=== PATIENT | female | born 1995 | race Caucasian/White ===

== ENCOUNTER 2021-08-06 20:14 | Outpatient (NON) | payer OTHER, SELFPAY | END 2021-08-06 20:15 | disposition home or self-care (01) | LOC: ANHLAB 20:18 | PROVIDERS: Visit Provider Surgery Plastic and Reconstructive Surgery | DX: B99.9 Unspecified infectious disease (principal) | CPT/HCPCS: 87070; 87075; 87205 ==

== ENCOUNTER 2021-11-09 11:52 | Day surgery (SDC) | payer OTHER, SELFPAY ==
[2021-10-24 14:17] VITALS: BMI 28.9
--- NOTE | 2021-11-07 07:56 | SUR.PREOP ---
PRE-OPERATIVE [address] [address] 1. Report to the Surgery Center Waiting Room, the entrance is the first door on the right after passing through the automatic sliding doors, at time 12:00__on date_11/09/2021___. OR Time:13:30____ . When you arrive, you and your visitor will be screened for Covid prior to entry. A mask is required within the surgery center. 2. Patients may have clear liquids (water, carbonated beverages, clear teas, apple juice) until 3 hours prior to surgery with a maximum of 20 ounces. ? No food from midnight until time of surgery. ? Infants may have breast milk until 4 hours before surgery, infant formula 6 hours prior to surgery. ? Children will be allowed to drink immediately following surgery. If applicable, please bring a bottle or sippy cup to assist with drinking. Juice, water, soda, and popsicles are readily available. For infants on formula, please bring formula the day of surgery. Pacifiers are allowed. 3. Take the following medications with a SIP of water the morning of surgery: 1. n/a 2. 3. Medications to discontinue per physician order: 1. n/a date to discontinue: 4. No make-up, nail urdu, hairspray, perfume, deodorant, or body powder the day of surgery. No jewelry (including any body piercings) or valuables the day of surgery. Please take a shower or bath the night before, or the morning of, surgery with an antibacterial soap. Wear comfortable, loose fitting clothing. Children are encouraged to wear pajamas. ? Jewelry must be removed prior to entering the operating room. Rings and piercings that are not removed will be cut off. The center will not accept responsibility for valuables. Please leave all valuables, including medications, at home the day of surgery. 5. When going home after surgery, a licensed telephone directory distributor driver must drive you home. NO public transportation without another adult. We recommend someone to stay with you, no alcoholic beverages, driving or important decision making for 24 hours after surgery. For pediatric surgeries, we recommend two adults to accompany a child home. (Only one will be allowed into the building with the patient) 6. 1 visitor (over age of 18) will be allowed. The visitor will drop patient off and remain in car until patient is prepared for surgery. Visitor will be called to join patient. Exceptions: Adult of a pediatric patient, patients with intellectual and/or developmental disability or cognitive impairments can accompany patient through-out visit. Visitors will need to be screened prior to coming into the center. Screening will include Covid symptom question checking. Visitor must wear a mask. Visitor will remain in patient?s room for duration of stay. 7. If you or anyone in your household have experienced Covid symptoms in the past week, please notify your surgeon or surgery center at phone number below for possible testing. 8. Follow any additional instructions given by your physician. Telephone instructions given to: patientJasvir and asked if any additional questions and then verbalized understanding. Patient advised to call surgeon office or the surgery center at [phone] if any additional questions.
--- NOTE | 2021-11-08 16:55 | WPDANESEPPF ---
Anes - Initial Pre Proc Eval Procedure: Operation Date: 11/09/21 13:30 Proposed Procedures p Fat Grafting to Left Breast - George Robles MD Date/Time: 11/08/21 16:55 Surgeon: George Robles MD Pre Op Diagnosis: Breast Asymmetry Patient Data Age: 26 Gender: F Height: 1.73 m Weight: 86.3 kg Allergies Allergy/AdvReac Type Severity Reaction Status Date / Time No Known Allergies Allergy Verified 10/24/21 13:57 Home Medications Medication Instructions Recorded Confirmed Type dextroamphetamine-amphetamine 10 10 mg PO DAILY 04/03/21 11/09/21 History mg tablet etonogestrel 68 mg subdermal 1 implant SUBDERMAL ONCE 04/03/21 11/09/21 History implant oxybutynin chloride 10 mg 10 mg PO DAILY 04/03/21 11/09/21 History tablet,extended release 24 hr docusate sodium 100 mg capsule 100 mg PO DAILY #14 cap 10/25/21 11/09/21 Rx hydrocodone 5 mg-acetaminophen 325 1 tablet PO Q6H PRN #30 tablet 10/25/21 11/09/21 Rx mg tablet ondansetron 4 mg disintegrating 4 mg PO Q8H #28 tablet 10/25/21 11/09/21 Rx tablet Patient hx anesthesia problems: none Family hx anesthesia problems: none Results Review: All pre-operative results and documents have been reviewed as part of the pre-operative evaluation. [facility], [facility] Past Medical History Medical History (Updated 11/08/21 @ 16:56 by Surya Coello DO) ADD (attention deficit disorder) Surgical History Surgical History History of tonsillectomy History of wisdom tooth extraction Family History Family History Father Heart disease Mother Hypertension Diabetes mellitus Social History Social History Smoking status: Never smoker Second hand tobacco smoke exposure: No Alcohol intake: current Drinks per week: 2 Substance use: unknown Living arrangements: alone Spiritual care concerns: No Anes - Eval Final PreProcedure Day of Procedure 11/08/21 16:55 Patient weight: overweight Heart: regular rate and rhythm Lungs: clear to auscultation and normal air movement Airway: Mallampati scale class II Neurological: alert and oriented Last oral intake: >/= 8 hours ASA classification: II Emergent: no Anesthetic plan: proceed Anesthesia type and monitoring: general LMA and standard monitoring Results Review: All pre-operative results and documents have been reviewed as part of the pre-operative evaluation. Informed Consent: The patient's anesthetic plan and its attendant risks and benefits were discussed with the patient/family/POA. Questions were solicited and answers provided to the satisfaction of the patient/family/POA.
[2021-11-09] MEDS: LACTATED RINGERS 1,000 ML 30 ML IV CONT ×2 (12:35→15:16)
[2021-11-09] MEDS: SCOPOLAMINE 1.5 MG PATCH TRANSDERM (12:37)
[2021-11-09 12:40] VITALS: BP 114/78; PULSE 64; RESP 18; TEMP 37.2; O2SAT 99
[2021-11-09 12:47] VITALS: BMI 29.5
--- NOTE | 2021-11-09 13:15 | WPDHPUPDATE1 ---
History and Physical Update Update Date/Time: 11/09/21 13:15 History and Physical has been reviewed, including an updated exam of the patient. There are NO changes in the patient's condition. Risks, benefits, and alternatives have been discussed and questions answered. Patient agrees to proceed with procedure.
[2021-11-09] MEDS: ceFAZolin SODIUM 2 GM/20 ML SW SYRINGE IV PUSH (13:49)
[2021-11-09] MEDS: LACTATED RINGERS IRRIG 1,000 ML, LIDOCAINE HCL 1% LOCAL INJ 50 ML, EPINEPHrine HCL INJ ... INFILTRATE (14:10)
--- NOTE | 2021-11-09 15:05 | P.OP_ITS ---
Procedure Note - Detailed Date of Procedure 11/09/21 Pre-op Diagnosis Breast Asymmetry Post-op Diagnosis Same Procedure Performed Fat grafting left breast harvest site abdomen Surgeon George Robles MD Anesthesia General Findings Lipoaspirate 900 cc abdomen Fat grafting to left breast 330 cc Description of Procedure She is here today for additional stage of fat grafting to the left breast. Previously and again today the risks, benefits, alternatives were discussed in extensive detail. I want her to be very realistic about the risks involved as well as expectations. Made sure answered all of her questions to her satisfaction. She understands this is unique procedure with unique risks and unique outcomes. Previous success does not guarantee future success. Consent obtained. She was marked in the preoperative holding area with her verification. She was taken to the operating room placed supine on the operating room table. Anesthesia provided by anesthesiology and prepped and draped in a standard sterile fashion. Surgical time-out was taken. A thorough abdominal examination was completed. No hernias palpable. Stab incisions at her previous sites were made and I infiltrated with a tumescent solution. Once adequate time for hemostasis a 3 mm multi hole suction cannula was utilized to a gravity separation device using a [employer] separation system. Once adequate time for separation we used the central adipose portion which was injected in the left breast in multiple planes and passes. This was through the same 3 mm suction cannula. Infiltration volumes as above. The port sites were closed using a 4-0 nylon. She tolerated the procedure well. Dressings were placed. She was woken taken to the PACU without difficulty. All instrument sponge counts were correct at the end of the case. Estimated Blood Loss 20 Drains No Packing No Pathology None sent Complications No immediate complications Condition Stable Disposition PACU
[2021-11-09 15:16] VITALS: BP 122/72; PULSE 73; RESP 15; TEMP 36.3; O2SAT 100
[2021-11-09] MEDS: fentaNYL CITRATE INJ (*CRX) 100 MCG/2 ML VIAL 25 MCG IV PUSH (15:30)
[2021-11-09 15:31] VITALS: BP 121/62; PULSE 83; RESP 22; O2SAT 95
[2021-11-09 15:41] VITALS: BP 123/74; PULSE 80; RESP 28; O2SAT 98
[2021-11-09 15:45] VITALS: BP 125/76; PULSE 73; RESP 16; O2SAT 100
--- NOTE | 2021-11-09 15:50 | WPDANESPN ---
Anes - Prog Note Post-Op Date/Time: 11/09/21 15:50 Cardiovascular status: normal Respiratory status: normal Airway patency: baseline Mental status: baseline Post-Op hydration status: normal Vital Signs: Last Vital Signs Temp 36.3 C L 11/09/21 15:16 Pulse 80 11/09/21 15:41 Resp 28 H 11/09/21 15:41 BP 123/74 11/09/21 15:41 Pulse Ox 98 11/09/21 15:41 Pain Score (VAS): 3 I/O: Intake & Output 11/08/21 11/09/21 11/09/21 23:59 07:59 15:59 Intake Total 0 Balance 0 Post-procedural complaints: none Patient Feedback: Patient satisfied with anesthetic care. Other Findings: Patient vital signs back to baseline. Patient denies nausea and vomiting. Patient's pain under control. Patient OK for discharge.
[2021-11-09] MEDS: oxyCODONE HCL (*CRX) 5 MG TAB IR PO (16:14)
[2021-11-09 16:15] VITALS: BP 113/70; PULSE 56; RESP 16; O2SAT 98
--- NOTE | 2021-11-09 16:51 | SUR.PHASEII ---
1635 Pt up to get dressed and had a leak of mod amount of sero sang drainage come from lower abd. Dressing reinforced with abd pads and 4x4s .
== END 2021-11-09 16:44 | disposition home or self-care (01) ==
PROVIDERS: Visit Provider Surgery Plastic and Reconstructive Surgery
PROC: (CPT 15769; principal; 2021-11-09 13:30)
DX: N64.81 Ptosis of breast (principal)
CPT/HCPCS: 15771; 15772

== ENCOUNTER 2022-03-21 00:36 | Day surgery (SDC) | payer OTHER, SELFPAY ==
[2022-03-14 14:32] VITALS: BMI 28.0
--- NOTE | 2022-03-14 14:42 | PC.NURSE ---
Report to the Outpatient Waiting Room, entrance under the green pavilion located off [facility], at 0600 on 03/21/22. OR Time: 0730. Time changes happen often and if your time is changed the preop area will call you the afternoon before. - You and your visitor will be asked to self-screen and do not enter if you have any COVID symptoms. - Only one visitor and NO children visitors are allowed at this time. - The patient visitor is requested to leave or wait in car when not with patient due to restrictions. - A mask is required within the hospital. Patients may have clear liquids (water, carbonated beverages, clear teas, apple juice) until 3 hours prior to surgery with a maximum of 20 ounces. - No food from midnight until time of surgery - Infants may have breast milk until 4 hours before surgery, infant formula 6 hours prior to surgery. Take the following medications with a SIP of water the morning of surgery: ADDERALL AND OXYBUTYNIN Medications to discontinue per physician MULTIVITAMIN Date to take last dose 3 DAYS PRIOR TO SURGERY Please no make-up, nail albanian, hairspray, perfume, deodorant, or body powder the day of surgery. No jewelry (including any body piercings) or valuables the day of surgery, leave them at home. Please take a shower or bath the night before, or the morning of, surgery with an antibacterial soap. Wear comfortable, loose fitting clothing. - Jewelry must be removed prior to entering the operating room. Rings and piercings that are not removed may be cut off. - The hospital will not accept responsibility for valuables. - Please leave all valuables, including medications, at home the day of surgery. If you are going home after surgery, a licensed concrete truck driver must drive you home. - NO public transportation without another adult. - We recommend that an adult stay with you for 24 hours following discharge. - We also recommend that you do not drive, make important decision, drink alcoholic beverages, or take any drugs that were not prescribed by your health care provider for at least 24 hours after your discharge time. Follow any additional instructions given to you from your surgeon. If you or anyone in your household have experienced Covid symptoms in the past week, please notify your surgeon or the nurse liaison at the phone number below for possible testing. Telephone instructions given to patient and asked if any additional questions and then verbalized understanding. Patient advised to call surgeon office or pre surgery nurse liaison [phone] if any additional questions.
[2022-03-21] VITALS (8 sets, daily range): BP systolic 108–129; BP diastolic 68–82; PULSE 67–91; RESP 13–16; TEMP 36.3–36.6; O2SAT 99–100
[2022-03-21] MEDS: LACTATED RINGERS 1,000 ML 30 ML IV CONT ×2 (06:45→09:05)
--- NOTE | 2022-03-21 06:50 | WPDANESEPPF ---
Anes - Initial Pre Proc Eval Procedure: Operation Date: 03/21/22 07:30 Proposed Procedures p Left Breast Fat Grafting - George Robles MD Date/Time: 03/21/22 06:50 Surgeon: George Robles MD Pre Op Diagnosis: unacceptable cosmetic appearance Patient Data Age: 26 Gender: F Height: 1.75 m Weight: 90 kg Allergies Allergy/AdvReac Type Severity Reaction Status Date / Time No Known Allergies Allergy Verified 03/21/22 06:38 Home Medications Medication Instructions Recorded Confirmed Type dextroamphetamine-amphetamine 10 20 mg PO DAILY 04/03/21 03/21/22 History mg tablet (Adderall) oxybutynin chloride 10 mg 10 mg PO DAILY 04/03/21 03/21/22 History tablet,extended release 24 hr levonorgestrel-ethinyl estradiol 1 tablet PO DAILY 03/14/22 03/21/22 History 0.1 mg-20 mcg tablet (Sronyx) multivit with minerals-iron 18 1 tablet PO DAILY 03/14/22 03/21/22 History mg-folic ac 400 mcg-vit K 25 mcg tablet (Adults Multivitamin) Laboratory Tests 03/21/22 06:31 Cotinine Pending Patient hx anesthesia problems: none Family hx anesthesia problems: none Results Review: All pre-operative results and documents have been reviewed as part of the pre-operative evaluation. [facility] Past Medical History Medical History (Updated 03/21/22 @ 06:50 by Kadeem Sexton MD) ADD (attention deficit disorder) Overweight Surgical History Surgical History (Updated 03/21/22 @ 06:50 by Kadeem Sexton MD) H/O breast surgery History of tonsillectomy History of wisdom tooth extraction Family History Family History Father Heart disease Mother Hypertension Diabetes mellitus Social History Social History Smoking status: Current every day smoker Tobacco type: e-cigarettes/vaping Second hand tobacco smoke exposure: No Additional smoking assessment comments: HAS VAPED PAST 2 MONTHS Alcohol intake: never Drinks per week: 2 Substance use: never Living arrangements: alone Spiritual care concerns: No Anes - Eval Final PreProcedure Day of Procedure 09/22/22 06:50 Patient weight: overweight Heart: regular rate and rhythm Lungs: clear to auscultation Airway: Mallampati scale class II Neurological: alert and oriented Last oral intake: >/= 8 hours ASA classification: II Emergent: no Anesthetic plan: proceed Anesthesia type and monitoring: general LMA and standard monitoring Results Review: All pre-operative results and documents have been reviewed as part of the pre-operative evaluation. Informed Consent: The patient's anesthetic plan and its attendant risks and benefits were discussed with the patient/family/POA. Questions were solicited and answers provided to the satisfaction of the patient/family/POA.
--- NOTE | 2022-03-21 07:05 | WPDHPUPDATE1 ---
History and Physical Update Update Date/Time: 03/21/22 07:05 History and Physical has been reviewed, including an updated exam of the patient. There are NO changes in the patient's condition. Risks, benefits, and alternatives have been discussed and questions answered. Patient agrees to proceed with procedure.
[2022-03-21] MEDS: ceFAZolin 2 GM/D5W 50 ML 2 GM/50 ML BAG IVPB (07:30)
[2022-03-21 07:47] LABS: Urine Cotinine NEGATIVE
[2022-03-21] MEDS: LACTATED RINGERS IRRIG 1,000 ML, LIDOCAINE HCL 1% LOCAL INJ 50 ML, EPINEPHrine HCL INJ ... INFILTRATE ×2 (08:15→08:20)
--- NOTE | 2022-03-21 09:02 | P.OP_ITS ---
Procedure Note - Detailed Date of Procedure 03/21/22 Pre-op Diagnosis unacceptable cosmetic appearance Post-op Diagnosis Same Procedure Performed Fat grafting left breast 250cc Surgeon George Robles MD Findings Lipoaspirate (abdomen / flanks) 800cc Left breast fat grafting 250cc Description of Procedure She is here today for additional stage of fat grafting to the left breast.? Previously and again today the risks, benefits, alternatives were discussed in extensive detail.? I want her to be very realistic about the risks involved as well as expectations.? Made sure answered all of her questions to her satisfaction.? She understands this is unique procedure with unique risks and unique outcomes.? Previous success does not guarantee future success.? She voiced a clear understanding and would like to proceed. Consent obtained.? She was marked in the preoperative holding area with her verification.? She was taken to the operating room placed supine on the operating room table.? Anesthesia provided by anesthesiology and prepped and draped in a standard sterile fashion.? Surgical time-out was taken.? A thorough abdominal examination was completed.? No hernias palpable.? Stab incisions at her previous sites were made and I infiltrated with a tumescent solution.? Once adequate time for hemostasis a 3 mm multi hole suction cannula was utilized to a gravity separation device using a [employer] separation system. Once adequate time for separation we used the central adipose portion which was injected in the left breast in multiple planes and passes.? This was through the same 3 mm basket cannula.? Infiltration volumes as above. The port sites were closed using a 4-0 nylon.? She tolerated the procedure well.? Dressings were placed.? She was woken taken to the PACU without difficulty.? All instrument sponge counts were correct at the end of the case. Estimated Blood Loss 25 Drains No Packing No Pathology None sent Complications No immediate complications Condition Stable Disposition PACU
[2022-03-21] MEDS: oxyCODONE HCL (*CRX) 5 MG TAB IR PO (10:17)
== END 2022-03-21 10:56 | disposition home or self-care (01) ==
PROVIDERS: Visit Provider Surgery Plastic and Reconstructive Surgery
PROC: (CPT 15769; principal; 2022-03-21 07:30)
DX: Z41.1 Encounter for cosmetic surgery (principal); F98.8 Other specified behavioral and emotional disorders with onset usually occurring in childhood and adolescence; F17.290 Nicotine dependence, other tobacco product, uncomplicated
CPT/HCPCS: 15771; 15772 ×4; 80307; A9270; C9290; J0171; J0690; J1100; J1170; J2250; J2405; J2704; J3010; J7120